=== PATIENT | female | born 1935 | race Caucasian/White ===

== ENCOUNTER 2017-04-10 00:55 | Day surgery (SDC) | payer OTHER ==
[~2017-04-10 00:55] MED LIST: CLC200SP2; DICL100G26 TOPICAL; GABA-500 PO; TRAM50TA2 PO
[2017-04-10] MEDS ORDERED: [UNRECOGNIZED DRUG - OTHER] TOPICAL (14:52)
[2017-04-10] MEDS ORDERED: PHEN26CR RECTAL (14:52)
--- NOTE | 2017-04-10 15:41 | DRSVH ---
PROCEDURE: PHYSICIAN CONSULTATION COMPARISON: [facility], MR, MR LUMBAR SPINE WO CON, 04/04/2017, 13:25. [facility], CR, XR LUMBAR SPINE W OBL MIN 4VW, 03/15/2017, 16:45. ID & CHIEF COMPLAINT: Radiculopathy. Lumbar fracture. HISTORY OF PRESENT ILLNESS: Mrs. Lancaster is a pleasant 82-year-old female who is accompanied by 2 huang members, and reports a roughly 2 month history of radiculopathy involving her left lower extremi ty. The patient reports no upper lumbar back pain. MEDICATIONS: Medication list on file (in PACS documents) and reviewed. FOCUSED PHYSICAL EXAM: Direct palpation region demonstrates no pain. The patient is in a wheelchair w ith limited mobility. LABORATORY AND IMAGING STUDIES: MRI examination performed 6.7 x 17 demonstrates an L2 compression fra cture with retropulsion and 25% resulting canal stenosis. Fluid within the L2-L3 disc is present. IMPRESSION: I discussed the MRI findings and physical examination findings with the patient and her a ccompanying family members. I explained that vertebroplasty was not indicated because of the lack of significant pain at the site of the fracture. I suggested that the patient see anesthesiologist to robert hernandez the possibility of nerve root injection/ablation to help with radiculopathy. The family member s had questions regarding potential surgery, which I thought unlikely, but that if they wished to dis cuss this option, to contact a lumbar spine surgeon. This was also discussed with Dr. Cheyenne davila 04.10.17 at 1530 hrs. Dictated by: Yusuf Magallon M.D. on 04/10/2017 at 15:35 Approved by: Yusuf Magallon M.D. on 04/10/2017 at 15:39
== END 2017-04-10 23:59 | disposition home or self-care (01) ==
LOC: SOUO 00:55
PROVIDERS: ATTEND Radiology Diagnostic Radiology
DX: Z71.89 Other specified counseling (principal); M54.10 Radiculopathy, site unspecified; S32.028A Other fracture of second lumbar vertebra, initial encounter for closed fracture